=== PATIENT | male | born 1950 | race Caucasian/White ===

== ENCOUNTER 2018-04-15 05:29 | Inpatient (IN) | payer OTHER ==
[~2018-04-15] VITALS: Ht 175.3 cm; Wt 74.6 kg
--- NOTE | ~2018-04-15 | O ---
[facility] [place] [address] OPERATIVE REPORT Name: MANGO LOWE Aidee Room #: 455-P [facility] IN .R.#: [id number] Admission: 04/15/18 Attend Phys: Raj Moreira MD Discharge: Date of : 54 Report #: [id number] THIS REPORT FOR: //name// CC: Raj Moreira [facility] physician/PCP DATE OF SERVICE: 04/15/2018 PREOPERATIVE DIAGNOSIS: Left shoulder rotator cuff tear, chronic with global and retracted tear. POSTOPERATIVE DIAGNOSIS: Left shoulder rotator cuff tear, chronic with global and retracted tear. PROCEDURE: Decompressive acromioplasty and open rotator cuff repair. SURGEON: Raj Moreira MD INDICATIONS: This active 67-year-old gentleman complains of left shoulder pain and weakness. Clinical exam and MRI scan confirmed a large retracted rotator cuff tear. He has delayed his surgery for various reasons and I believe the tear has become more severe and retracted with time. I have explained that we cannot adequately repair this chronic and retracted tear. He understands and wishes to proceed. DESCRIPTION OF PROCEDURE: The patient was taken to the Operating Room and the left shoulder interscalene block was applied. General anesthesia was then applied. The left shoulder and arm were meticulously prepped and draped. Prophylactic intravenous antibiotics were administered. An anterior longitudinal skin incision was made beginning at the anterior acromion and extending distally about 5 cm. This was carried through subcutaneous tissues and the deltoid was split longitudinally. Rather marked prominence of the anterior acromion was identified with significant spurring causing significant impingement. The deltoid was elevated from this area of significant prominence and spurring and then an anterior acromioplasty was performed. A subacromial decompression was also performed extending posteriorly in an adequate fashion to decompress the subacromial space. The surface of the bone was carefully smoothed with a small rasp removing any remaining spurs or prominences. The subacromial space was nicely decompressed. The rotator cuff was found to be torn in a global fashion extending from just anterior medial to the biceps tendon all the way back to the posterior lateral aspect. This was significantly retracted and required some mobilization. However, there was a fairly firm satisfactory leading edge and once this was mobilized and identified, I felt a satisfactory repair back to a nearly anatomic position would be appropriate. The tendon was secured with nine #2 Tevdek sutures spaced evenly throughout the [address] [address] OPERATIVE REPORT Name: MANGO LOWE Room #: 455-P [facility] IN [facility].#: [id number] Admission: 04/15/18 Attend Phys: Raj Moreira MD Discharge: Date of : 54 Report #: [id number] leading edge of the rotator cuff tendon. A landing spot was created using a small osteotome and rongeur to create a small trough at the margin of the greater tuberosity. The bone was found to be surprisingly soft in this gentleman. Nevertheless, an adequate bleeding bony bed was created. The nine #2 Tevdek sutures were then passed individually using small trocar needles bringing this through the bone of the greater tuberosity out to the lateral aspect of the metaphyseal region. The sutures were passed individually with needles, which allowed minimal trauma to the bone and seemed to space out the sutures in an even pattern. Once these had all been appropriately passed and spaced, firm tension was applied on all the sutures bringing the rotator cuff tendon back nicely to a near anatomic and firm repair site at the greater tuberosity. The sutures were individually tied over bony bridges as firm tension was applied. This resulted in a very satisfactory firm and stable repair. The biceps tendon had been noted to be present, although there was some fraying and evidence of mild biceps tendinitis, I felt the tendon was still functional and did not feel that biceps ____ at this point was necessary. Following the repair, the shoulder seemed to be stable and demonstrated good range of motion and significant improvement and subacromial impingement. The deltoid was then repaired back to the leading edge of the acromion using multiple #1 Vicryl sutures with several pass through the bone of the acromion to create a good bone to muscle tendon repair. A yara-[id number] repair was extended more distally. This resulted in a satisfactory repair of the deltoid. The subcutaneous tissues were then repaired using 2-0 Monocryl and the skin was closed with a running subcuticular 2-0 Prolene supplemented with Steri-Strips. A sterile dressing was applied. The patient was awakened and returned to recovery room in good condition. <ELECTRONICALLY SIGNED> By: Raj Moreira MD 04/16/18 0801 [id number] Raj Moreira MD /nt
--- NOTE | ~2018-04-15 | D ---
[facility] [place] [address] DISCHARGE SUMMARY Name: MYNORMANGO Room #: 221-P [facility] IN ..#: [id number] Admission: 04/15/18 Attend Phys: Raj Moreira MD Discharge: Date of : 54 Report #: [id number] THIS REPORT FOR: //name// CC: Raj Moreira [facility] physician/PCP DATE OF SERVICE: 04/18/2018 FINAL DIAGNOSIS: Left shoulder rotator cuff repair. HISTORY OF PRESENT ILLNESS: This active 67-year-old gentleman complains of chronic progressive left shoulder pain. Clinical exam and MRI confirmed a large retracted rotator cuff tear. He has elected to go ahead with surgical repair. HOSPITAL COURSE: The patient was admitted and taken to the operating room on 04/15. He underwent an open decompressive acromioplasty and rotator cuff repair. A large global retracted tear was identified and repaired. He tolerated this well. He did, however, have significant postoperative discomfort and required routine IV narcotic medications for pain control. Therefore, he was kept in the hospital for several days for pain management. He was able to gradually taper down from IV pain medication to oral pain medication and resume a regular diet. He had no other significant medical problems. He seems today safe and ready for discharge home. DISCHARGE MEDICATIONS: Include multivitamins daily, melatonin 5 mg daily, hydrocodone 10 mg q.6 hours p.r.n. for pain. He will continue a regular diet. He will continue with very gentle range of motion exercises at home on his own. I will plan to see him back in the office in about 7-10 days for followup and suture removal. <ELECTRONICALLY SIGNED> By: Raj Moreira MD 04/18/18 1110 [id number] Raj Moreira MD /nt
[~2018-04-15 05:29] MED LIST: CENTRUM SILVER1 EAC2 PO; MELATONIN5 M1 PO; NASAL SPRAY30 M3 NASAL; VITAMINC500 PO; [UNRECOGNIZED DRUG - OTHER] PO
[2018-04-15 09:28] VITALS: BP 129/80
[2018-04-15 12:30] VITALS: BP 127/70
[2018-04-15 13:30] VITALS: BP 121/72; BP 134/54
[2018-04-15 14:30] VITALS: BP 121/82
[2018-04-15 19:12] VITALS: BP 111/56
[2018-04-16 00:27] VITALS: BP 117/64
[2018-04-16 05:37] VITALS: BP 115/64
[2018-04-16 06:19] LABS: HEMATOCRIT 40.2 % (42.0-52.0); HEMOGLOBIN 13.4 gm/dL (14.0-18.0)
[2018-04-16 06:28] LABS: POTASSIUM 3.7 mmol/L (3.5-5.1)
[2018-04-16 08:19] VITALS: BP 137/60
[2018-04-16 08:57] VITALS: BP 137/60
[2018-04-16 09:02] VITALS: BP 137/60
[2018-04-16 23:03] VITALS: BP 145/88
[2018-04-17 07:15] VITALS: BP 132/89
[2018-04-17 19:37] VITALS: BP 141/84
[2018-04-18 07:15] VITALS: BP 118/78
[2018-04-18 12:46] VITALS: BP 118/78
== END 2018-04-18 14:02 | disposition home or self-care (01) | DRG 512 ==
LOC: TBA 05:29 → OR 05:29 → 4W 09:46 → SICU 09:46 → OR 09:46 → SICU 04-16 09:44 → ENTRNSPT 04-18 13:36 → EDTRNSPTSTS 04-18 13:54 → SICU 04-18 14:02
PROVIDERS: Orthopaedic Surgery
DX: M75.102 Unspecified rotator cuff tear or rupture of left shoulder, not specified as traumatic (principal); Z79.899 Other long term (current) drug therapy; Z23 Encounter for immunization; S43.402A Unspecified sprain of left shoulder joint, initial encounter; Z87.891 Personal history of nicotine dependence; X58.XXXA Exposure to other specified factors, initial encounter; Y93.89 Activity, other specified; Y92.89 Other specified places as the place of occurrence of the external cause; Y99.8 Other external cause status
CPT/HCPCS: 10047; 15002; 50010; 50101; 50386; 50417; 50733; 56525; 56526; 56527; 62110; 62900; 70005